=== PATIENT | female | born 1980 | race Hispanic/Latino ===

== ENCOUNTER 2017-01-11 15:13 | Emergency (ER) | payer OTHER ==
[~2017-01-11] VITALS: Ht 157.5 cm; Wt 65.8 kg
[~2017-01-11 15:13] MED LIST: BACTRIM DS TAB1 EACH PO; LABETALOL HCL300 M1 PO; PERCOCET 325 MG1 TA2 PO; PYRIDIUM100 M1 PO; SUBOXONE 2 MG-1 EACH SL
[2017-01-11 15:46] VITALS: BP 168/70
--- NOTE | 2017-01-11 16:25 | ED GENERAL ADULT ---
History of Present Illness General Chief Complaint: General Adult Stated Complaint: DIFFICULTY SWALLOWING Source: patient Exam Limitations: no limitations Vital Signs & Intake/Output Vital Signs & Intake/Output Vital Signs Date Time Temp Pulse Resp B/P Pulse O2 O2 Flow FiO2 Ox Delivery Rate 01/11 1546 98.1 102 18 168/70 98 Room Air Allergies Coded Allergies: NO KNOWN ALLERGIES (03/10/15) Triage Note: COMPLAINS OF SORE THROAT AND EAR PRESSURE X 4 DAYS, DIFFICULTY SWALLOWING Triage Nurses Notes Reviewed? yes Onset: Gradual Duration: day(s): (4) Injury Environment: home Severity: moderate Severity Numbers: 6 Modifying Factors: Worsens With: other (SWALOOWING). Associated Symptoms: cough : No Patient currently breastfeeds: No HPI: Patient is a 36-year-old female presenting to the emergency department with chief complaint of sore throat, difficulty swallowing secondary to pain been going on for the past 4 days. Denies any fevers or chills. She reports that people at work And sick with similar symptoms. Denies any nausea or vomiting. No chest pain palpitations. Sensory is moderate, sharp in stabbing when she swallows. Still eating and drinking but trying to avoid anything difficult to swallow. Denies any excessive fatigue or malaise. Mild frontal headache throbbing in nature currently 2 out of 10. Some relief with [id number] Advil. (RY WERNER) Reconcile Medications Benzonatate (Tessalon Perle) 100 MG CAPSULE 1 CAP PO TID PRN COUGH Methylprednisolone. (Medrol) 4 MG TAB.DS.PK 1 DP PO AD PHARYNGITIS 6 on day 1 then reduce by one tablet daily until gone (MAURICE VAZQUEZ,SARATH Aden) Past History Travel History Traveled to [place] past 21 day No Medical History Any Pertinent Medical History? see below for history Neurological: NONE EENT: NONE Cardiovascular: NONE Respiratory: NONE Gastrointestinal: NONE Hepatic: NONE Renal: NONE Musculoskeletal: NONE Psychiatric: NONE Endocrine: NONE Blood Disorders: NONE Cancer(s): NONE MARINE SERVICES TECHNICIAN/Reproductive: ECTOPIC Surgical History Surgical History: cholecystectomy Psychosocial History What is your primary language Irish Tobacco Use: Current Daily Use Daily Tobacco Use Amount/Type: => 5 Cigarettes daily ETOH Use: denies use Illicit Drug Use: denies illicit drug use Family History Hx Contributory? No (RY WERNER) Review of Systems Review of Systems Constitutional: Reports: no symptoms. Comments Review of systems: See HPI, All other systems negative. Constitutional, no chills fever or weight loss HEENT: No visual changes Cardiovascular: No chest pain ,palpitation , orthopnea or ankle swelling Skin, no jaundice no rashes Respiratory: No dyspnea sputum or hemoptysis GI: No nausea no vomiting : No dysuria No hematuria Muscle skeletal: no back pain, no neck pain, Neurologic: No numbness Psych: No stress anxiety or depression,. Heme/endocrine: No bruising no bleeding no polyuria or polydipsia Immunology: No splenectomy or history of AIDS (RY WERNER) Physical Exam Physical Exam General Appearance: well developed/nourished, no apparent distress, alert, awake , comfortable Comments: Well-developed well-nourished person in no acute distress HEENT: Pupils equally round and reactive to light and accommodation. Nose is atraumatic. External auditory canal and Tympanic membranes clear. Pharynx is mildly erythematous, NO EXUDATE. No swelling or edema. Clearing secretions without difficulty. No enlargement of tonsils bilaterally. Neck: Supple,MILD ANTERIOR LYMPHADENOPATHY BILATERALLY, MOBILE, NON-TENDER normal range of motion without pain or tenderness. Cardiovascular: Regular rate and rhythms no murmurs rubs or gallops, normal JVP Respiratory: Chest nontender. No respiratory distress.breath sounds clear to auscultation bilaterally Extremity: No edema Neuro: Alert oriented x3 Skin: No appreciable rash on exposed skin, skin is warm and dry. Psych: Mood and affect is normal, memory and judgment is normal. Core Measures ACS in differential dx? No CVA/TIA Diagnosis: No Severe Sepsis Present: No Septic Shock Present: No (YR WERNER) Progress Differential Diagnoses I considered the following diagnoses in my evaluation of the patient: Viral pharyngitis, tonsillitis, strep, upper respiratory infection, lymphadenopathy, mono Plan of Care: Orders Procedure Date/time Status THROAT CULTURE W/QUICK STREP 01/11 154 Active Initial ED EKG: none (RY WERNER) Departure Departure Time of Disposition: 1639 Disposition: HOME OR SELF CARE Condition: Stable Clinical Impression Primary Impression: Pharyngitis Qualifiers: Pharyngitis/tonsillitis etiology: unspecified etiology Qualified Code: J02.9 - Acute pharyngitis, unspecified Referrals: UNKNOWN (PCP/Family) Additional Instructions: Follow-up with your primary care physician call to make an appointment. Take Medrol dosepak as prescribed to help with sore throat. Take Tessalon Perles as prescribed to help with cough. Increase fluids. Return for worsening symptoms or concerns. Do not use [id number] anti-inflammatories with the steroids as they are similar medications he should just use the Medrol Dosepak I gave you. Departure Forms: Customer Survey General Discharge Information Prescriptions: Current Visit Scripts Methylprednisolone. (Medrol) 1 DP PO AD #1 DP 6 on day 1 then reduce by one tablet daily until gone Benzonatate (Tessalon Perle) 1 CAP PO TID PRN COUGH #30 CAP (RY WERNER) PA/MANAGEMENT TRAINEE Co-Sign Statement Statement: ED Attending supervision documentation- [] I saw and evaluated the patient. I have also reviewed all the pertinent lab results and diagnostic results. I agree with the findings and the plan of care as documented in the PA's/MANAGEMENT TRAINEE's documentation. [X] I have reviewed the ED Record and agree with the PA's/MANAGEMENT TRAINEE's documentation. [] Additions or exceptions (if any) to the PAs/MANAGEMENT TRAINEE's note and plan are summarized below: [] (MAURICE VAZQUEZ,SARATH Aden) Critical Care Note Critical Care Note Critical Care Time: non-applicable (RY WERNER)
[2017-01-11] MEDS ORDERED: TESSALON PERLE100 M1 PO (16:41)
[2017-01-11] MEDS ORDERED: MEDROL4 M2 PO (16:41)
== END 2017-01-11 16:49 ==
LOC: ERH 15:13
DX: J02.9 Acute pharyngitis, unspecified (principal)